=== PATIENT | male | born 2000 | race Caucasian/White ===

== ENCOUNTER 2022-08-19 05:37 | Emergency (ER) | payer OTHER, SELFPAY ==
[2022-08-19 06:32] LABS: Absolute Lymphocytes (CBC) 1.1 K/uL (0.7-4.9); Hematocrit 42.7 % (39.6-49.0); Lymphocytes % 14.5 % (15.3-44.8); MCV 84.5 fL (80-100); MPV 7.3 fL (7.6-11.3); RBC Red Blood Cell Count 5.05 M/uL (4.33-5.43)
[2022-08-19] MEDS ORDERED: METHYLPREDNISOLONE 125 MG INJ ONE (06:46)
[2022-08-19] MEDS ORDERED: MORPHINE 4 MG/ML SYR ONE (06:47)
[2022-08-19] MEDS ORDERED: FAMOTIDINE 20 MG/2 ML VIAL IV ONE (06:47)
[2022-08-19] MEDS ORDERED: KETOROLAC 30 MG/ML INJ ONE (06:47)
[2022-08-19] MEDS ORDERED: ONDANSETRON 4 MG/2 ML VIAL ONE (06:47)
[2022-08-19 06:52] LABS: Potassium 3.8 mEq/L (3.5-5.1); Troponin High Sensitivity 33.1 pg/mL (<58.9)
--- NOTE | 2022-08-19 07:07 | EDPHYS ---
Physician Documentation [facility] Name: Moody Anderson Jr Age: 21 yrs Sex: Male : 2000 Arrival Date: 08/19/2022 Time: 05:37 Bed 6 Private MD: ED Physician Nick Luz HPI: 08/19 06:01 This 21 yrs old Male presents to ER via Ambulatory with complaints of Chest Pain, Back kdr Pain. 06:01 Patient states that tonight he started to have acute onset of chest pain that radiated kdr into his back. It hurts to take a deep breath and hurts to cough or breathe deeply. He has not had this before. Patient states he does vape but otherwise does not use any other drugs. He has not had this before. He denies fever, nausea or vomiting.. Onset: The symptoms/episode began/occurred last night. Severity of symptoms: At their worst the symptoms were severe incapacitating just prior to arrival, in the emergency department the symptoms are unchanged. The patient has not experienced similar symptoms in the past. The patient has not recently seen a physician. Historical: - Allergies: 06:00 No Known Allergies; jb4 - PMHx: 06:00 None; jb4 - PSHx: 06:00 None; jb4 - Immunization history:: Adult Immunizations up to date. - Social history:: Smoking status: Reported history of juuling and/or vaping. Patient uses alcohol. ROS: 06:01 Constitutional: Negative for fever, chills, and weight loss, Eyes: Negative for injury, kdr pain, redness, and discharge, ENT: Negative for injury, pain, and discharge, Neck: Negative for injury, pain, and swelling, Abdomen/GI: Negative for abdominal pain, nausea, vomiting, diarrhea, and constipation, Back: Negative for injury and pain, : Negative for injury, bleeding, discharge, and swelling, MS/Extremity: Negative for injury and deformity, Skin: Negative for injury, rash, and discoloration, Neuro: Negative for headache, weakness, numbness, tingling, and seizure activity. Psych: Negative for depression, anxiety, suicide ideation, homicidal ideation, and hallucinations, Allergy/Immunology: Negative for hives, rash, and allergies, Endocrine: Negative for neck swelling, polydipsia, polyuria, polyphagia, and marked weight changes, Hematologic/Lymphatic: Negative for swollen nodes, abnormal bleeding, and unusual bruising. 06:01 Cardiovascular: Positive for chest pain, with cough, with movement, of the back and chest, Negative for edema, orthopnea, palpitations, paroxysmal nocturnal dyspnea. Exam: 06:01 Constitutional: This is a well developed, well nourished patient who is awake, alert, kdr and in no acute distress. Head/Face: Normocephalic, atraumatic. Eyes: Pupils equal round and reactive to light, extra-ocular motions intact. Lids and lashes normal. Conjunctiva and sclera are non-icteric and not injected. Cornea within normal limits. Periorbital areas with no swelling, redness, or edema. Neck: Trachea midline, no thyromegaly or masses palpated, and no cervical lymphadenopathy. Supple, full range of motion without nuchal rigidity, or vertebral point tenderness. No Meningismus. Cardiovascular: Regular rate and rhythm with a normal S1 and S2. No gallops, murmurs, or rubs. Normal PMI, no JVD. No pulse deficits. Respiratory: Lungs have equal breath sounds bilaterally, clear to auscultation and percussion. No rales, rhonchi or wheezes noted. No increased work of breathing, no retractions or nasal flaring. Abdomen/GI: Soft, non-tender, with normal bowel sounds. No distension or tympany. No guarding or rebound. No evidence of tenderness throughout. Back: No spinal tenderness. No costovertebral tenderness. Full range of motion. Skin: Warm, dry with normal turgor. Normal color with no rashes, no lesions, and no evidence of cellulitis. MS/ Extremity: Pulses equal, no cyanosis. Neurovascular intact. Full, normal range of motion. Neuro: Awake and alert, GCS 15, oriented to person, place, time, and situation. Cranial nerves II-XII grossly intact. Motor strength 5/5 in all extremities. Sensory grossly intact. Cerebellar exam normal. Normal gait. Psych: Awake, alert, with orientation to person, place and time. Behavior, mood, and affect are within normal limits. 06:01 Chest/axilla: Inspection: normal, Palpation: tenderness, that is mild, of the anterior aspect of right upper chest, anterior aspect of left upper chest, xiphoid area and mid-sternal area. 06:30 ECG was reviewed by the Attending Physician. kdr Vital Signs: 05:59 BP 116 / 86; Pulse 90; Resp 16; Temp 98.2(TE); Pulse Ox 100% on R/A; Weight 63.5 kg jb4 (R); Height 6 ft. 1 in. (R); Pain 6/10; 07:00 BP 132 / 90; Pulse 90; Resp 16; Pulse Ox 100% on R/A; jb4 05:59 Body Mass Index 18.47 (63.50 kg, 185.42 cm) jb4 05:59 Pain Scale: Adult jb4 MDM: 06:01 Data reviewed: vital signs, nurses notes, lab test result(s), EKG, radiologic studies. kdr 07:06 Patient medically screened. kdr 08/19 05:59 Order name: Basic Metabolic Panel; Complete Time: 06:53 kdr 08/19 05:59 Order name: CBC with Diff; Complete Time: 06:53 kdr 08/19 05:59 Order name: Troponin HS; Complete Time: 06:53 kdr 08/19 05:59 Order name: UDS kdr 08/19 05:59 Order name: XRAY Chest (1 view) kdr 05 05:59 Order name: EKG; Complete Time: 06:00 kdr 08/19 05:59 Order name: Cardiac monitoring; Complete Time: 06:09 kdr 04 05:59 Order name: EKG - Nurse/Tech; Complete Time: 06:09 kdr 08/19 05:59 Order name: IV Saline Lock; Complete Time: 06:27 kdr 08/19 05:59 Order name: Labs collected and sent; Complete Time: 06:27 kdr EC:30 Rate is 78 beats/min. Rhythm is regular, Sinus Rhythm with No ectopy. QRS [place] is kdr Normal. [place] interval is normal. QRS interval is normal. Clinical impression: NSR w/ Non-specific ST/T Changes. Administered Medications: 06:59 Drug: morphine IVP or IV 4 mg Route: IVP; Infused Over: 4 mins; Site: right antecubital;jb4 06:59 Drug: Ondansetron IVP 4 mg Route: IVP; Site: right antecubital; jb4 06:59 Drug: Famotidine IVP 20 mg Route: IVP; Site: right antecubital; jb4 07:00 Drug: MethylPrednisoLONE IVP 125 mg Route: IVP; Site: right antecubital; jb4 07:00 Drug: Ketorolac IVP 15 mg Route: IVP; Site: right antecubital; jb4 Disposition Summary: 08/19/22 07:06 Discharge Ordered Location: Home kdr Problem: new kdr Symptoms: are resolved kdr Condition: Stable kdr Diagnosis - Pleurisy kdr - Costochondritis kdr - Chest pain on breathing kdr Followup: kdr - With: Private Physician - When: 2 - 3 days - Reason: If symptoms return, Further diagnostic work-up, Recheck today's complaints, Continuance of care, Re-evaluation by your physician Discharge Instructions: - Discharge Summary Sheet kdr - Chest Wall Pain kdr - Costochondritis kdr - Pleurisy kdr Forms: - Medication Reconciliation Form kdr - Thank You Letter kdr - Prescription Opioid Use kdr Prescriptions: - Ibuprofen 600 mg Oral Tablet - take 1 tablet by ORAL route every 6 hours As needed take with food; 30 tablet; kdr Refills: 0, Product Selection Permitted - Tramadol 50 mg Oral Tablet - take 1 tablet by ORAL route every 8 hours as needed; 12 tablet; Refills: 0, kdr Product Selection Permitted - Medrol (Ten) 4 mg Oral Tablets, Dose Pack - take 1 tablet by ORAL route as directed - follow package instructions; 1 kdr packet; Refills: 0, Product Selection Permitted Signatures: Dispatcher [employer] Nick Cazares MD MD kdr Vince Reddy RN RN jb4
--- NOTE | 2022-08-19 07:07 | ER ---
Nurse's Notes [facility] Name: Moody Anderson Jr Age: 21 yrs Sex: Male : 2000 Arrival Date: 08/19/2022 Time: 05:37 Bed 6 Private MD: Diagnosis: Pleurisy;Costochondritis;Chest pain on breathing Presentation: 08/19 05:59 Chief complaint: Patient states: I started having and intermittent pressure pain in my jb4 chest that radiates to my shoulder blades around 1 am. Coronavirus screen: At this time, the client does not indicate any symptoms associated with coronavirus-19. Ebola Screen: No symptoms or risks identified at this time. Initial Sepsis Screen: Does the patient meet any 2 criteria? No. Patient's initial sepsis screen is negative. Does the patient have a suspected source of infection? No. Patient's initial sepsis screen is negative. Risk Assessment: Do you want to hurt yourself or someone else? Patient reports no desire to harm self or others. Onset of symptoms was August 19, 2022. Transition of care: patient was not received from another setting of care. 05:59 Method Of Arrival: Ambulatory jb4 05:59 Acuity: DIMITRY 3 jb4 Historical: - Allergies: 06:00 No Known Allergies; jb4 - PMHx: 06:00 None; jb4 - PSHx: 06:00 None; jb4 - Immunization history:: Adult Immunizations up to date. - Social history:: Smoking status: Reported history of juuling and/or vaping. Patient uses alcohol. Screenin:00 [facility] ED Fall Risk Assessment (Adult) History of falling in the last 3 months, jb4 including since admission No falls in past 3 months (0 pts) Confusion or Disorientation No (0 pts). Abuse screen: Denies threats or abuse. Nutritional screening: No deficits noted. Tuberculosis screening: No symptoms or risk factors identified. Assessment: 06:00 General: Appears in no apparent distress. uncomfortable, Behavior is calm, cooperative, jb4 appropriate for age. Pain: Complains of pain in chest Pain radiates to back Pain currently is 6 out of 10 on a pain scale. Quality of pain is described as pressure, Pain began 1 hour ago. Neuro: Level of Consciousness is awake, alert, obeys commands, Oriented to person, place, time, situation. Cardiovascular: Patient's skin is warm and dry. Respiratory: Airway is patent Respiratory effort is even, unlabored, Respiratory pattern is regular, symmetrical. GI: No signs and/or symptoms were reported involving the gastrointestinal system. : No signs and/or symptoms were reported regarding the genitourinary system. EENT: No signs and/or symptoms were reported regarding the EENT system. Derm: Skin is intact, Skin is pink, warm \T\ dry. Musculoskeletal: Circulation, motion, and sensation intact. Range of motion: intact in all extremities. 07:02 Reassessment: Patient appears in no apparent distress at this time. Patient and/or jb4 family updated on plan of care and expected duration. Pain level reassessed. Patient is alert, oriented x 3, equal unlabored respirations, skin warm/dry/pink. Vital Signs: 05:59 BP 116 / 86; Pulse 90; Resp 16; Temp 98.2(TE); Pulse Ox 100% on R/A; Weight 63.5 kg jb4 (R); Height 6 ft. 1 in. (R); Pain 6/10; 07:00 BP 132 / 90; Pulse 90; Resp 16; Pulse Ox 100% on R/A; jb4 05:59 Body Mass Index 18.47 (63.50 kg, 185.42 cm) jb4 05:59 Pain Scale: Adult jb4 ED Course: 05:41 Patient arrived in ED. ag3 05:53 Nick Luz MD is Attending Physician. kdr 05:57 Vince Reddy, RN is Primary Nurse. jb4 06:00 Triage completed. jb4 06:00 Arm band placed on right wrist. jb4 06:14 XRAY Chest (1 view) In Process Unspecified. EDMS 06:30 Inserted saline lock: 18 gauge in right antecubital area, using aseptic technique. jb4 Blood collected. 07:00 Patient has correct armband on for positive identification. Bed in low position. Call jb4 light in reach. Side rails up X 1. Client placed on continuous cardiac and pulse oximetry monitoring. NIBP monitoring applied. monitor and storage bin tender on. 07:21 No provider procedures requiring assistance completed. IV discontinued, intact, ko1 bleeding controlled, No redness/swelling at site. Pressure dressing applied. Patient maintains SpO2 saturation greater than 95% on room air. Administered Medications: 06:59 Drug: morphine IVP or IV 4 mg Route: IVP; Infused Over: 4 mins; Site: right antecubital;jb4 06:59 Drug: Ondansetron IVP 4 mg Route: IVP; Site: right antecubital; jb4 06:59 Drug: Famotidine IVP 20 mg Route: IVP; Site: right antecubital; jb4 07:00 Drug: MethylPrednisoLONE IVP 125 mg Route: IVP; Site: right antecubital; jb4 07:00 Drug: Ketorolac IVP 15 mg Route: IVP; Site: right antecubital; jb4 Medication: 07:00 VIS not applicable for this client. jb4 Outcome: 07:06 Discharge ordered by . kdr 07:21 Discharged to home ambulatory, with family. ko1 07:21 Condition: good 07:21 Discharge instructions given to patient, Instructed on discharge instructions, follow up and referral plans. medication usage, Demonstrated understanding of instructions, follow-up care, medications, Prescriptions given X 3. 07:22 Patient left the ED. ko1 Signatures: Dispatcher [employer] EDMS Nick Luz MD MD kdr Bryson, James, RN RN jb4 Zahida Dias Kathy, RN RN ko1
[2022-08-19 07:19] LABS: Barbiturates NEGATIVE (NEGATIVE); Benzodiazepines NEGATIVE (NEGATIVE); Cocaine NEGATIVE (NEGATIVE); METHAMPHETAM NEGATIVE (NEGATIVE); Methadone NEGATIVE (NEGATIVE); Opiates NEGATIVE (NEGATIVE); Phencyclidine NEGATIVE (NEGATIVE); THC Cannibis NEGATIVE (NEGATIVE)
[2022-08-19 07:45] VITALS: TEMP 98.2; O2SAT 100
[2022-08-19 07:46] VITALS: BP 132/90
--- NOTE | 2022-08-19 07:49 | EKG ---
Test Date: 2022-08-19 Test Time: 06:06:55 Operating Room Coordinator: VADIM MEASUREMENT RESULTS: Intervals: Rate: 78 [place]: 134 QRSD: 90 QT: 378 QTc: 430 [place]: P: 74 [place]: 134 QRS: 86 T: 89 INTERPRETIVE STATEMENTS: Normal sinus rhythm Normal ECG No previous ECG available for comparison Electronically Signed On 08-19-22 07:49:[address]eses
--- NOTE | 2022-08-19 11:44 | RAD REPORT ---
EXAM DESCRIPTION: RAD - Chest Single View - 08/19/2022 6:12 am CLINICAL HISTORY: CHEST PAIN COMPARISON: None FINDINGS: The lungs are clear bilaterally. There is no focal infiltrate, pleural effusion or pneum othorax. The cardiomediastinal contours are unremarkable. There are no acute bony or soft tissue abno rmalities. IMPRESSION: No acute cardiopulmonary process. Electronically signed by: Evans Vásquez MD 08/19/2022 6:25 AM CDT Due to temporary technical issues with the PACS/Fluency reporting system, reports are being signed by the in house radiologists without review as a courtesy to insure prompt reporting. The interpreting radiologist is fully responsible for the content of the report.
== END 2022-08-19 07:22 | disposition home or self-care (01) ==
LOC: ER 05:37
DX: R09.1 Pleurisy (principal); M94.0 Chondrocostal junction syndrome [Tietze]
CPT/HCPCS: 36415; 71045; 80048; 80307; 84484; 85025; 93005; 96374; 96375; 99285; J2405; J2930

== ENCOUNTER 2024-07-20 12:12 | Emergency (ER) | payer SELFPAY ==
--- NOTE | 2024-07-20 19:15 | EDPHYS ---
Physician Documentation [facility] Name: Moody Anedrson Jr Age: 23 yrs Sex: Male : 2000 Arrival Date: 07/20/2024 Time: 12:12 Bed DX3 Private MD: ED Physician Dyan Mcclelland HPI: 07/20 13:25 This 23 yrs old Male presents to ER via Ambulatory with complaints of Runny Nose, Sore cp Throat. 13:25 The patient presents with sore throat. cp 13:25 Onset: The symptoms/episode began/occurred for past couple days. cp 13:25 Severity of symptoms: in the emergency department the symptoms are unchanged. cp Associated signs and symptoms: Pertinent positives: cough, rhinorrhea. Historical: - Allergies: 13:24 No Known Allergies; ap3 - Home Meds: 13:24 None [Active]; ap3 - PMHx: 13:24 None; ap3 - Immunization history:: Client reports having NOT received the Covid vaccine. Flu vaccine is not up to date. - Infectious Disease History:: Denies. - Social history:: Smoking status: Reported history of juuling and/or vaping. Patient uses alcohol, occasionally. ROS: 13:30 Constitutional: Negative for fever, poor PO intake, cp 13:30 Eyes: Negative for injury, pain, redness, and discharge, cp 13:30 ENT: Positive for sore throat, Negative for drainage from ear(s), ear pain, difficulty swallowing, difficulty handling secretions, 13:30 Cardiovascular: Negative for chest pain, 13:30 Respiratory: Positive for cough, Negative for shortness of breath, wheezing, 13:30 Abdomen/GI: Negative for abdominal pain, vomiting, diarrhea, constipation, 13:30 Neuro: Negative for altered mental status, dizziness, headache, weakness, 13:30 All other systems are negative, Exam: 13:35 Constitutional: The patient appears in no acute distress, alert, awake, non-toxic, well cp developed, well nourished, uncomfortable, 13:35 Head/Face: Normocephalic, atraumatic. cp 13:35 Eyes: Periorbital structures: appear normal, Conjunctiva: normal, no exudate, no injection, Sclera: no appreciated abnormality, Lids and lashes: appear normal, bilaterally, 13:35 ENT: External ear(s): are unremarkable, Ear canal(s): are normal, clear, TM's: dullness, bilaterally, Nose: is normal, Mouth: Lips: moist, Oral mucosa: moist, Posterior pharynx: Airway: no evidence of obstruction, patent, Tonsils: with erythema, mild enlargement, Uvula: midline, erythema, that is mild, 13:35 Neck: ROM/movement: Meningeal signs: are not present, nuchal rigidity, is not appreciated, Lymph nodes: lymphadenopathy is appreciated, anterior cervical nodes, 13:35 Chest/axilla: Inspection: normal, 13:35 Cardiovascular: Rate: tachycardic, Rhythm: regular, 13:35 Respiratory: the patient does not display signs of respiratory distress, Respirations: normal, no use of accessory muscles, no retractions, labored breathing, is not present, Breath sounds: are clear throughout, no decreased breath sounds, no stridor, no wheezing, 13:35 Abdomen/GI: Inspection: abdomen appears normal, Palpation: abdomen is soft and non-tender, in all quadrants, 13:35 Skin: no rash present. Vital Signs: 13:23 BP 114 / 79; Pulse 113; Resp 18; Temp 99; Pulse Ox 100% ; Weight 63.5 kg; Height 6 ft. ap3 1 in. ; Pain 2/10; 14:57 Pulse 86; Resp 16; Pulse Ox 100% ; ap3 13:23 Body Mass Index 18.47 (63.50 kg, 185.42 cm) ap3 13:23 Pain Scale: Adult ap3 MDM: 14:36 Data reviewed: vital signs, nurses notes, lab test result(s), and as a result, I will cp discharge patient. 14:36 Differential diagnosis: apthous stomatitis, group A strep tonsillitis, influenza, cp laryngitis, selena's angina, peritonsillar abscess pharyngitis, retropharyngeal abcess. I considered the following discharge prescriptions or medication management in the emergency department Medications were administered in the Emergency Department. See MAR. Counseling: I had a detailed discussion with the patient and/or guardian regarding the historical points, exam findings, and any diagnostic results supporting the discharge/admit diagnosis, lab results, to return to the emergency department if symptoms worsen or persist or if there are any questions or concerns that arise at home. 14:37 Medical Screening Exam initiated cp Administered Medications: 14:47 Drug: Amoxicillin-Clavulanate PO 875 mg PO once Route: PO; ap3 14:56 Follow up: Response: Medication administered at discharge. ap3 14:47 Drug: Tessalon Perle PO 200 mg PO once Route: PO; ap3 14:56 Follow up: Response: Medication administered at discharge. ap3 Disposition Summary: 07/20/24 14:37 Discharge Ordered Notes: Location: Home cp Condition: Stable cp Diagnosis - Streptococcal pharyngitis cp - Cough cp Followup: cp - With: Private Physician - When: 2 - 3 days - Reason: Worsening of condition Discharge Instructions: - Discharge Summary Sheet cp - Sore Throat cp - Rapid Strep Test cp - Strep Throat, Adult cp Forms: - Work release form ph - Medication Reconciliation Form cp - Antibiotic Education cp - Prescription Opioid Use cp - Patient Portal Instructions cp - Leadership Thank You Letter cp Prescriptions: - Amoxicillin 875 mg Oral Tablet - take 1 tablet ORAL route every 12 hours for 10 days; 20 tablet; Refills: 0, cp Product Selection Permitted - Tessalon Perles 100 mg Oral capsule - take 1 capsule ORAL route every 8 hours As needed; 20 capsule; Refills: 0, cp Product Selection Permitted Signatures: Rocky Fraser PA PA cp Bryanna Colon RN RN ap3
--- NOTE | 2024-07-20 19:15 | ER ---
Nurse's Notes [facility] Name: Moody Anderson Jr Age: 23 yrs Sex: Male : 2000 Arrival Date: 07/20/2024 Time: 12:12 Bed DX3 Private MD: Diagnosis: Streptococcal pharyngitis;Cough Presentation: 07/20 13:23 Chief complaint: Patient states: he has been having sore throat, runny nose, and body ap3 aches for a couple of days. patient states he has not taken any OTC medications. Coronavirus screen: Client presents with at least one sign or symptom that may indicate coronavirus-19. Ebola Screen: No symptoms or risks identified at this time. Initial Sepsis Screen: Does the patient meet any 2 criteria? HR > 90 bpm. Does the patient have a suspected source of infection? No. Patient's initial sepsis screen is negative. Risk Assessment: Do you want to hurt yourself or someone else? Patient reports no desire to harm self or others. Onset of symptoms is unknown. 13:23 Method Of Arrival: Ambulatory ap3 13:23 Acuity: DIMITRY 3 ap3 Triage Assessment: 13:24 General: Appears ill, Behavior is calm, cooperative, appropriate for age. Pain: ap3 Complains of pain in generalized body aches. EENT: Reports nasal congestion pain when swallowing. Neuro: Level of Consciousness is awake, alert, obeys commands, Oriented to person, place, time, situation, Appropriate for age. Cardiovascular: Patient's skin is warm and dry. Respiratory: Reports cough that is Airway is patent Respiratory effort is even, unlabored, Respiratory pattern is regular, symmetrical. Historical: - Allergies: 13:24 No Known Allergies; ap3 - Home Meds: 13:24 None [Active]; ap3 - PMHx: 13:24 None; ap3 - Immunization history:: Client reports having NOT received the Covid vaccine. Flu vaccine is not up to date. - Infectious Disease History:: Denies. - Social history:: Smoking status: Reported history of juuling and/or vaping. Patient uses alcohol, occasionally. Screenin:25 [facility] ED Fall Risk Assessment (Adult) History of falling in the last 3 months, ap3 including since admission No falls in past 3 months (0 pts) Confusion or Disorientation No (0 pts) Intoxicated or Sedated No (0 pts) Impaired Gait No (0 pts) Mobility Assist Device Used No (0 pt) Altered Elimination No (0 pt) Score/Fall Risk Level 0 - 2 = Low Risk Oriented to surroundings, Maintained a safe environment, Educated pt \T\ family on fall prevention, incl call for assistance when getting out of bed, Assessed \T\ reinforced patient's understanding of fall precautions, Hourly rounding (assess needs \T\ fall precautionary measures) done, Used ambulatory aids as needed (educated on \T\ assisted with). Abuse screen: Denies threats or abuse. Nutritional screening: No deficits noted. Tuberculosis screening: No symptoms or risk factors identified. Assessment: 14:56 Respiratory: Airway is patent Respiratory effort is even, unlabored, Respiratory ap3 pattern is regular, symmetrical, Breath sounds are clear. 14:56 EENT: Throat is pink with gag reflex present. ap3 Vital Signs: 13:23 BP 114 / 79; Pulse 113; Resp 18; Temp 99; Pulse Ox 100% ; Weight 63.5 kg; Height 6 ft. ap3 1 in. ; Pain 2/10; 14:57 Pulse 86; Resp 16; Pulse Ox 100% ; ap3 13:23 Body Mass Index 18.47 (63.50 kg, 185.42 cm) ap3 13:23 Pain Scale: Adult ap3 ED Course: 13:20 Patient arrived in ED. al6 13:23 Dyan Mcclelland MD is Attending Physician. sp3 13:24 Triage completed. ap3 13:25 Rocky Fraser PA is PHCP. cp 13:26 Arm band placed on right wrist. ap3 14:56 Patient has correct armband on for positive identification. Provided Education on: ap3 discharge instructions. 14:56 No provider procedures requiring assistance completed. Patient did not have IV access ap3 during this emergency room visit. Administered Medications: 14:47 Drug: Amoxicillin-Clavulanate PO 875 mg PO once Route: PO; ap3 14:56 Follow up: Response: Medication administered at discharge. ap3 14:47 Drug: Tessalon Perle PO 200 mg PO once Route: PO; ap3 14:56 Follow up: Response: Medication administered at discharge. ap3 Medication: 14:57 VIS not applicable for this client. ap3 Outcome: 14:37 Discharge ordered by . cp 14:56 Discharged to home ambulatory, ap3 14:56 Condition: good 14:56 Discharge instructions given to patient, Instructed on discharge instructions, follow up and referral plans. medication usage, Demonstrated understanding of instructions, follow-up care, medications, Prescriptions given X 2, 14:57 Patient left the ED. ap3 Signatures: Rocky Fraser PA PA cp Prokisch, Amanda, RN RN ap3 Dyan Mcclelland MD MD sp3 Tabitha Joseph al6
[2024-07-20 19:22] LABS: Influenza A Ag Negative; Influenza B Ag Negative; SARS-CoV-2 Antigen Rapid Res Negative (Negative)
[2024-07-20 19:29] VITALS: BP 114/79; TEMP 99; O2SAT 100
== END 2024-07-20 14:57 | disposition home or self-care (01) ==
LOC: ER 12:12
DX: J02.0 Streptococcal pharyngitis (principal); R05.9 Cough, unspecified; Z11.52 Encounter for screening for COVID-19
CPT/HCPCS: 36415; 87428; 99283